=== PATIENT | male | born 1965 | race Caucasian/White ===

== ENCOUNTER 2016-07-29 13:41 | Emergency (ER) | payer SELFPAY ==
[~2016-07-29] VITALS: Ht 193 cm; Wt 100.0 kg
[2016-07-29 13:43] VITALS: BP 163/114; PULSE 86; RESP 16; TEMP 98.1; O2SAT 95
[2016-07-29 14:19] VITALS: BP 145/112
[2016-07-29] MEDS ORDERED: SODIUM CHLORIDE 0.9% FLUSH 5 ML FLUSH IVF PRN (14:30)
[2016-07-29 14:50] LABS: AUTOMATED NEUTROPHIL # 5.2 TH/MM3 (1.8-7.7); BASOPHIL # 0.1 TH/MM3 (0-0.2); BASOPHIL % 1.6 % (0.0-2.0); EOSINOPHIL # 0.1 TH/MM3 (0-0.4); EOSINOPHIL % 1.8 % (0.0-4.0); HEMATOCRIT 58.9 % (39.0-51.0); HEMO FLAGS DIFF FINAL; LYMPH % 22.6 % (9.0-44.0); LYMPHOCYTE # 1.8 TH/MM3 (1.0-4.8); MEAN CELL VOLUME 100.1 FL (80.0-100.0); MEAN CORPUSCULAR HEMOGLOBIN 34.3 PG (27.0-34.0); MEAN CORPUSCULAR HGB CONC 34.2 % (32.0-36.0); MONO % 9.7 % (0.0-8.0); NEUT % 64.3 % (16.0-70.0); PLATELET COUNT 160 TH/MM3 (150-450); RED BLOOD COUNT 5.89 MIL/MM3 (4.50-5.90); RED CELL DISTRIBUTION WIDTH 14.5 % (11.6-17.2); WHITE BLOOD COUNT 8.1 TH/MM3 (4.0-11.0)
[2016-07-29 14:58] LABS: BLOOD, URINE TRACE (NEG); GLUCOSE,URINE NEG (NEG); KETONE, URINE NEG (NEG); NITRITE,URINE NEG (NEG); PH, URINE 5.5 (5.0-8.5); URINE COLOR YELLOW (YELLW/STRAW)
[2016-07-29 14:59] LABS: PROTHROMBIN TIME - PATIENT 10.9 SEC (9.8-11.6)
[2016-07-29 14:59] LABS: COMMENT (UR) CULT NOT INDICATED; CULTURE IF INDICATED CULT NOT INDICATED
--- NOTE | 2016-07-29 15:00 | PD ---
HPI Chief Complaint: Back/ Neck Pain or Injury Time Seen by Provider: 14:57 Travel History International Travel<30 days: No Contact w/Intl Traveler<30days: No Traveled to known affect area: No History of Present Illness HPI 50-year-old male presents to the emergency room for evaluation of right flank pain after falling in the shower 2 nights ago. Patient slipped and fell backwards striking his right flank on the tile bench in his shower. He denies hitting his head or loss of consciousness. Denies any other injuries. Reports immediate pain that has worsened over the past 2 days. States pain is localized to the right flank and feels like a muscle spasm but occasionally radiates up his back. He has been taking Aleve without relief in symptoms. Pain is worse with any range of motion of the back. Denies hematuria. PFSH Social History Tobacco Use: No Allergies-Medications (Allergen,Severity, Reaction): Coded Allergies: No Known Allergies (Unverified , 07/29/16) Reported Meds & Prescriptions Reported Meds & Active Scripts Active Ibuprofen 800 Mg Tab 800 Mg PO Q8H PRN Robaxin (Methocarbamol) 750 Mg Tab 750 Mg PO Q6HR Review of Systems Except as stated in HPI: all other systems reviewed are Neg Physical Exam Narrative GENERAL: Well-nourished, well-developed male in no acute distress. Afebrile. Ambulatory. SKIN: Warm and dry. There is mild ecchymosis over the right flank. HEAD: Normocephalic. EYES: No scleral icterus. No injection or drainage. NECK: Supple, trachea midline. No JVD or lymphadenopathy. CARDIOVASCULAR: Regular rate and rhythm without murmurs, gallops, or rubs. RESPIRATORY: Breath sounds equal bilaterally. No accessory muscle use. CHEST: Extreme tenderness to palpation of the posterior right rib cage. No deformity or crepitance. No retractions or use of accessory muscles. GASTROINTESTINAL: Abdomen soft, non-tender, nondistended. BACK: No midline tenderness. No obvious deformity. Moderate to severe right- sided CVA tenderness. Data Data Last Documented VS Vital Signs Date Time Temp Pulse Resp B/P Pulse Ox O2 Delivery O2 Flow Rate FiO2 07/29/16 14:19 145/112 07/29/16 13:43 98.1 86 16 95 Room Air Orders Basic Metabolic Panel (Bmp) (07/29/16 14:27) Complete Blood Count With Diff (07/29/16 14:27) Prothrombin Time / Inr (Pt) (07/29/16 14:27) Act Partial Throm Time (Ptt) (07/29/16 14:27) Urinalysis - C+S If Indicated (07/29/16 14:27) Ct Abd/Pel W Iv Contrast(Rout) (07/29/16 14:27) Iv Access Insert/Monitor (07/29/16 14:27) Ecg Monitoring (07/29/16 14:27) Oximetry (07/29/16 14:27) Sodium Chloride 0.9% Flush (Ns Flush) (07/29/16 14:30) Iohexol 350 Inj (Omnipaque 350 Inj) (07/29/16 17:00) Acetamin-Hydrocod 325-5 Mg ([place] 5-325 (07/29/16 17:45) Cyclobenzaprine (Flexeril) (07/29/16 17:45) Labs Laboratory Tests Test 07/29/16 07/29/16 14:40 14:45 White Blood Count 8.1 TH/MM3 Red Blood Count 5.89 MIL/MM3 Hemoglobin 20.2 GM/DL Hematocrit 58.9 % Mean Corpuscular Volume 100.1 FL Mean Corpuscular Hemoglobin 34.3 PG Mean Corpuscular Hemoglobin 34.2 % Concent Red Cell Distribution Width 14.5 % Platelet Count 160 TH/MM3 Mean Platelet Volume 9.2 FL Neutrophils (%) (Auto) 64.3 % Lymphocytes (%) (Auto) 22.6 % Monocytes (%) (Auto) 9.7 % Eosinophils (%) (Auto) 1.8 % Basophils (%) (Auto) 1.6 % Neutrophils # (Auto) 5.2 TH/MM3 Lymphocytes # (Auto) 1.8 TH/MM3 Monocytes # (Auto) 0.8 TH/MM3 Eosinophils # (Auto) 0.1 TH/MM3 Basophils # (Auto) 0.1 TH/MM3 CBC Comment DIFF FINAL Differential Comment Prothrombin Time 10.9 SEC Prothromb Time International 1.0 RATIO Ratio Activated Partial 28.0 SEC Thromboplast Time Sodium Level 141 MEQ/L Potassium Level 4.7 MEQ/L Chloride Level 107 MEQ/L Carbon Dioxide Level 27.6 MEQ/L Anion Gap 6 MEQ/L Blood Urea Nitrogen 9 MG/DL Creatinine 0.98 MG/DL Estimat Glomerular Filtration 81 ML/MIN Rate Random Glucose 102 MG/DL Calcium Level 9.0 MG/DL Urine Color YELLOW Urine Turbidity CLEAR Urine pH 5.5 Urine Specific [place] 1.013 Urine Protein NEG mg/dL Urine Glucose (UA) NEG mg/dL Urine Ketones NEG mg/dL Urine Occult Blood TRACE Urine Nitrite NEG Urine Bilirubin NEG Urine Urobilinogen LESS THAN 2.0 MG/DL Urine Leukocyte Esterase NEG Urine RBC 1 /hpf Urine WBC LESS THAN 1 /hpf Microscopic Urinalysis Comment CULT NOT INDICATED MDM Medical Decision Making Medical Screen Exam Complete: Yes Emergency Medical Condition: Yes Medical Record Reviewed: Yes Differential Diagnosis rib fracture versus contusion versus kidney injury versus Narrative Course 50-year-old male presents to the emergency room for evaluation of right flank pain status post fall 2 days ago. Patient fell backwards in the shower striking his right flank on the tile shower seat. Since then he has had worsening pain. There is moderate ecchymosis over the right flank which is extremely tender to palpation. Posterior rib cage also extremely tender to palpation. Denies hematuria. Abdomen soft, nontender. Patient denies abdominal pain. UA shows trace occult blood. CBC and BMP are unremarkable. CT of the abdomen is negative for acute abnormality. This is contusion. Patient given Lortab and Flexeril in the emergency room. He will be discharged with prescription for ibuprofen and Robaxin and told to follow up with a primary care physician or return for worsening symptoms. He understands and agrees to this plan. Diagnosis Primary Impression: Contusion of left side of mid back Qualified Code: S20.222A - Contusion of left side of mid back, initial encounter Referrals: Primary Care Physician Patient Instructions: Contusion in Adults (ED), General Instructions Additional Instructions: Rest and drink plenty of fluids. Take Robaxin as directed, as needed for pain. Take ibuprofen with food as directed, as needed for pain. Apply ice to the affected area for 20 minutes at a time, as needed for pain and swelling. Follow-up with a primary care physician. Return to the emergency room for worsening symptoms. Med/Other Pt SpecificInfo: Prescription(s) given Scripts Ibuprofen 800 Mg [id number] Mg PO Q8H PRN (Pain/Inflammation) #21 TAB Ref 0 Prov:David Collins MD 07/29/16 Methocarbamol (Robaxin)750 Mg [id number] Mg PO Q6HR #21 TAB Ref 0 Prov:David Collins MD 07/29/16 Disposition: 01 DISCHARGE HOME Condition: Stable Aleyda Osborn Jul 29, 2016 15:00
[2016-07-29 15:19] LABS: BICARBONATE 27.6 MEQ/L (21.0-32.0); POTASSIUM 4.7 MEQ/L (3.5-5.1)
[2016-07-29] MEDS ORDERED: IOHEXOL 350 MG/ML 10 ML VIAL (for RAD DIAG) IV ONE (17:00)
--- NOTE | 2016-07-29 17:37 | RADRPT ---
EXAM DATE/TIME: 07/29/2016 16:58 [facility] COMPARISON: No previous studies available for comparison. INDICATIONS : Abdomen pain. IV CONTRAST: 77 cc Omnipaque 350 (iohexol) IV ORAL CONTRAST: No oral contrast ingested. RADIATION DOSE: 14.24 CTDIvol (mGy) MEDICAL HISTORY : None SURGICAL HISTORY : None. ENCOUNTER: Initial ACUITY: 1 day PAIN SCALE: 5/10 LOCATION: Bilateral abdomen. TECHNIQUE: Volumetric scanning of the abdomen and pelvis was performed. Using automated exposure control and ad justment of the mA and/or kV according to patient size, radiation dose was kept as low as reasonably achievable to obtain optimal diagnostic quality images. FINDINGS: LOWER LUNGS: Mild atelectasis at both lung bases noted. LIVER: Homogeneous density without lesion. There is no dilation of the biliary tree. No calcified [place]ston es. SPLEEN: Normal size without lesion. PANCREAS: Within normal limits. KIDNEYS: Normal in size and shape. There is no mass, stone or hydronephrosis. ADRENAL GLANDS: Within normal limits. VASCULAR: There is no aortic aneurysm. BOWEL/MESENTERY: The stomach, small bowel, and colon demonstrate no acute abnormality. There is no free intraperitone al air or fluid. ABDOMINAL WALL: Within normal limits. RETROPERITONEUM: There is no lymphadenopathy. BLADDER: No wall thickening or mass. REPRODUCTIVE: Within normal limits. INGUINAL: There is no lymphadenopathy or hernia. MUSCULOSKELETAL: Visualized osseous structures are intact. There are L5/S1 degenerative changes with vacuum phenomena and chronic endplate sclerosis. CONCLUSION: No visceral organ injury or other acute abnormality seen within the abdomen or pelvis. Mild atelectas is seen at both lung bases. Emiliano Lyon MD on July 29, 2016 at 17:32 Board Certified Radiologist. This report was verified electronically.
[2016-07-29] MEDS ORDERED: ROBA750T PO (17:44)
[2016-07-29] MEDS ORDERED: IBUP800T23 PO (17:44)
[2016-07-29] MEDS ORDERED: CYCLOBENZAPRINE HCL 10 MG TAB PO ONE (17:45)
[2016-07-29] MEDS ORDERED: ACETAMINOPHEN/HYDROcodone 325 MG/5 MG TAB PO ONE (17:45)
== END 2016-07-29 17:59 | disposition home or self-care (01) ==
LOC: NEPB 13:41
DX: S20.222A Contusion of left back wall of thorax, initial encounter (principal); W18.2XXA Fall in (into) shower or empty bathtub, initial encounter
CPT/HCPCS: 74177; 80048; 81001; 85025; 85610; 85730; 99284; Q9967

== ENCOUNTER 2016-08-03 04:27 | Emergency (ER) | payer SELFPAY ==
[~2016-08-03] VITALS: Ht 193 cm; Wt 100.0 kg
[~2016-08-03 04:27] MED LIST: IBUP800T23 PO; ROBA750T PO
[2016-08-03 04:31] VITALS: BP 168/114; PULSE 77; RESP 18; TEMP 97.6; O2SAT 97
[2016-08-03] MEDS ORDERED: MORPHINE SULFATE 8 MG/ML INJ IV PUSH ONE (04:45)
[2016-08-03] MEDS ORDERED: ONDANSETRON ODT 4 MG TAB PO ONE (04:45)
[2016-08-03] MEDS ORDERED: HYDR-3533 PO (04:46)
[2016-08-03] MEDS ORDERED: MORPHINE SULFATE 8 MG/ML INJ IM STA (04:52)
--- NOTE | 2016-08-03 04:52 | PD ---
HPI Chief Complaint: Pain: Acute or Chronic Time Seen by Provider: 04:46 Travel History International Travel<30 days: No Contact w/Intl Traveler<30days: No Traveled to known affect area: No History of Present Illness HPI 50-year-old white male presents to emergency Department with complaints of right lower back pain. He states that he was involved in a slip and fall earlier this past week. He had CAT scans of the abdomen and laboratory testing. These were negative. He was sent home with Motrin and Robaxin. He states that he was doing well and did some additional activities this evening and since then he has had sudden severe onset of right lower back pain. He denies any numbness, tingling or weakness. No bowel or bladder changes. PFSH Past Medical History Medical History: Denies Significant Hx Tetanus Vaccination: < 5 Years Past Surgical History Surgical History: No Previous Surgery Social History Tobacco Use: No Allergies-Medications (Allergen,Severity, Reaction): Coded Allergies: No Known Allergies (Unverified , 08/03/16) Reported Meds & Prescriptions Reported Meds & Active Scripts Active Ibuprofen 800 Mg Tab 800 Mg PO Q8H PRN Robaxin (Methocarbamol) 750 Mg Tab 750 Mg PO Q6HR Review of Systems Except as stated in HPI: all other systems reviewed are Neg Physical Exam Narrative GENERAL: Well-developed, well-nourished in no apparent distress. Nontoxic appearing. HEAD: Normocephalic, atraumatic. EYES: Pupils equal round and reactive. Extraocular motions intact. No scleral icterus. No injection or drainage. ENT: Nose clear. Throat without erythema, tonsillar hypertrophy or exudate. Uvula midline. Airway patent. NECK: Trachea midline. Supple, nontender, moves head freely. No central bony tenderness or spasm. CARDIOVASCULAR: Regular rate and rhythm without murmurs, gallops, or rubs. RESPIRATORY: Clear to auscultation. Breath sounds equal bilaterally. No wheezes , rales, or rhonchi. CHEST: Nontender throughout without deformity or crepitance. No retractions or use of accessory muscles. GASTROINTESTINAL: Abdomen soft, non-tender, nondistended. No hepato-splenomegaly , or palpable masses. No guarding. EXTREMITIES: No clubbing, cyanosis, or edema. No joint tenderness. BACK: No central bony tenderness to palpation of dorsal lumbar spine. Patient has an area of ecchymosis and stages of resolution to his right flank. The patient has acute tenderness and spasm to the right lower paralumbar muscles. Without deformity. NEUROLOGICAL: Awake, alert and oriented x 3 .Cranial nerves grossly intact. Motor and sensory grossly within normal limits. Normal speech. Data Data Last Documented VS Vital Signs Date Time Temp Pulse Resp B/P Pulse Ox O2 Delivery O2 Flow Rate FiO2 08/03/16 04:31 97.6 77 18 168/114 97 Room Air Orders Morphine Inj (Morphine Inj) (08/03/16 04:45) Ondansetron Odt (Zofran Odt) (08/03/16 04:45) MDM Medical Decision Making Medical Screen Exam Complete: Yes Emergency Medical Condition: Yes Medical Record Reviewed: Yes Differential Diagnosis MDM: High Differential diagnoses: Fracture, sprain, strain, dislocation, contusion, neurovascular injury Narrative Course This an acute exacerbation of a back injury. Patient's given morphine 8 mg IM and Zofran 4 mg by mouth. This acute exacerbation of back pain Diagnosis Primary Impression: acute exacerbation of back pain Patient Instructions: Narcotic given in the ED, General Instructions Additional Instructions: Rest. Ice for the next 3 days followed by heat . Continue your regular medications. Lortab for additional pain. Follow-up with a primary care doctor in one week. Return to the ER for emergencies. Med/Other Pt SpecificInfo: Prescription(s) given Scripts Hydrocodone-Acetaminophen (Lortab)5-325 Mg Tab1 Tab PO Q8HR PRN (PAIN) #12 TAB Prov:David Collins MD 08/03/16 Disposition: 01 DISCHARGE HOME Condition: Stable Gordon Gonzalez Aug 03, 2016 04:52
== END 2016-08-03 05:10 | disposition home or self-care (01) ==
LOC: NEPB 04:27
DX: M54.5 Low back pain (principal)
CPT/HCPCS: 96372; 99283; J2270

== ENCOUNTER 2018-04-21 09:31 | Inpatient (IN) ==
--- NOTE | 2018-04-21 10:37 | ED ---
HPI General Chief Complaint: Animal Bite Stated Complaint: Bite by snake right index finger on Saturday night at the side of the nail. Initially pain and redness. [facility] and was given Tetanus shot and monitored. Was told that he needed to be admitted but elected not to stay. Took a friend's Keflex for antibiotics. Since, the swelling and erythema has increased and spread down to MCP joint area. He has drained the finger with a hypodermic needle, serosanguinous fluid. Unable to bend the finger. Denies systemic symptoms other than mild headache. Time Seen by Provider: 04/21/18 10:33 Source: patient Mode of arrival: ambulatory Related Data Home Medications Medication Instructions Recorded Confirmed No Known Home Medications 04/21/18 04/21/18 Allergies Allergy/AdvReac Type Severity Reaction Status Date / Time No Known Allergies Allergy Uncoded 08/03/16 04:32 Review of Systems ROS: all other systems reviewed are negative Constitutional Denies fatigue, Denies fever(s) and Reports headache(s) Cardiovascular Denies chest pain and Denies syncope Respiratory Denies cough and Denies dyspnea Gastrointestinal Denies abdominal pain, Denies diarrhea, Denies nausea and Denies vomiting Musculoskeletal Comments: finger pain PMFSH Medical History Medical History High cholesterol (Acute) Social History Social History Substance History: No History of Abuse Second Hand Smoke Exposure: Yes Smoking Status: Current every day smoker Tobacco Type: Cigarettes How Often Do You Have a Drink Containing Alcohol: 2 to 4 times a month Recent Travel in [facility] within the Last 8 Weeks: No Recent Out of Country Travel within the Last 8 Weeks: No Immunization History Tetanus Immunization: <5 Years Hx Influenza Vaccine This Season: No Exam Narrative Exam Narrative: gENERAL: [52-year-old male in no apparent distress-] SKIN: Focused skin assessment warm/dry. HEAD: Atraumatic. Normocephalic. EYES: Pupils equal and round. No scleral icterus. No injection or drainage. ENT: No nasal bleeding or discharge. Mucous membranes pink and moist. NECK: Trachea midline. No JVD. CARDIOVASCULAR: Regular rate and rhythm. No murmur appreciated. RESPIRATORY: No accessory muscle use. Clear to auscultation. Breath sounds equal bilaterally. GASTROINTESTINAL: Abdomen soft, non-tender, nondistended. Hepatic and splenic margins not palpable. MUSCULOSKELETAL: No obvious deformities. Pt has left distal finger swelling with hematoma under skin, erythema in hand up to a wrist, streaking. NEUROLOGICAL: Awake and alert. No obvious cranial nerve deficits. Motor grossly within normal limits. Normal speech. PSYCHIATRIC: Appropriate mood and affect; insight and judgment normal. Resp Effort & Inspection: normal respiratory effort Auscultation: clear to auscultation bilaterally Cardio Rate: regular rate Rhythm: regular rhythm Heart Sounds: S1 normal, S2 normal and no murmurs Course Initial Documented Vital Signs Temperature 97.5 F L 04/21/18 09:46 Pulse Rate 93 H 04/21/18 09:46 Respiratory Rate 15 04/21/18 09:46 Blood Pressure 161/102 H 04/21/18 09:46 Pulse Oximetry 96 04/21/18 09:46 Last Documented Vital Signs Temperature 98.0 F 04/21/18 09:52 Pulse Rate 79 04/21/18 14:21 Respiratory Rate 18 04/21/18 14:21 Blood Pressure 151/102 H 04/21/18 14:21 Pulse Oximetry 98 04/21/18 14:21 Medical Decision Making MDM Narrative Medical decision making narrative: Patient had a rattlesnake bite on Saturday, was discharged from [facility], failed Keflex antibiotics. She has worsening finger and hand cellulitis, will need to be admitted for IV antibiotics. Case discussed with team, Pt is accepted for admission, Hand surgeon call back is pending. Case discussed with , who agreed to be on case, will see Pt tomorrow. Medical Screen Exam Complete: Yes Emergency Medical Condition: No Differential Diagnosis Differential Diagnosis: Snakebite Hand cellulitis Lab Data Result diagrams: 04/21/18 10:54 04/21/18 13:16 Lab Results 04/21/18 04/21/18 Range/Units 10:54 13:16 WBC 6.2 (4.0-11.0) th/mm3 RBC 5.40 (4.50-5.90) mil/mm3 Hgb 19.9 H (13.0-17.0) gm/dL Hct 57.5 H (39.0-51.0) % MCV 106.5 H (80.0-100.0) fL MCH 36.9 H (27.0-34.0) pg MCHC 34.6 (32.0-36.0) % RDW 15.7 (11.6-17.2) % Plt Count 163 (150-450) th/mm3 MPV 9.2 (7.0-11.0) fL Neut % (Auto) 60.9 (16.0-70.0) % Lymph % (Auto) 23.4 (9.0-44.0) % [place] % (Auto) 8.8 H (0.0-8.0) % Eos % (Auto) 6.0 H (0.0-4.0) % Baso % (Auto) 0.9 (0.0-2.0) % Neut # (Auto) 3.8 (1.8-7.7) th/mm3 Lymph # (Auto) 1.5 (1.0-4.8) th/mm3 [place] # (Auto) 0.5 (0.0-0.9) th/mm3 Eos # (Auto) 0.4 (0.0-0.4) th/mm3 Baso # (Auto) 0.1 (0.0-0.2) th/mm3 WBC Differential . Differential Comment Auto diff final Sodium 140 (136-145) meq/L Potassium 4.3 (3.5-5.1) meq/L Chloride 112 H (98-107) meq/L Carbon Dioxide 20.7 L (21.0-32.0) meq/L Anion Gap 7 (5-15) meq/L BUN 8 (7-18) mg/dL Creatinine 0.81 (0.60-1.30) mg/dL Estimated GFR Greater than 89 (>89) mL/min Random Glucose 92 (74-106) mg/dL Calcium 8.0 L (8.5-10.1) mg/dL Total Bilirubin 1.2 H (0.2-1.0) mg/dL AST 13 L (15-37) U/L ALT 22 (12-78) U/L Alkaline Phosphatase 82 (45-117) U/L Total Protein 6.3 L (6.4-8.2) g/dL Albumin 3.1 L (3.4-5.0) g/dL Discharge Plan Discharge Disposition Patient Disposition: 01 Discharge Home Discharge Order Discharge Orders: Discharge Order (Routine); Ordered 04/21/18 Ordered By: Cisco Kruse Discharge Details Diagnosis: Cellulitis and abscess of hand, Bite, snake, venomous Physicians Team ED Provider: Cisco Kruse Primary Care Provider: Samir Cox Rxs /Orders / Referrals /Forms Prescriptions: No Action No Known Home Medications RF: 0 Discharge Interventions Interventions: Vital Signs Last Done: 04/21/18 14:21 Status ED Status: Admitted Patient
[2018-04-21] MEDS ORDERED: Sod Chloride 0.9% Inj 1,000 ML IV.SIG ONE (10:43)
[2018-04-21] MEDS ORDERED: Ketorolac Inj 30 MG/ML (IVP) Vial IV.PUSH ONE (10:43)
[2018-04-21] MEDS ORDERED: Clindamycin 600 mg/NS Premix 600 MG/50 ML PIGGYBACK IV.SIG ONE (10:43)
[2018-04-21 11:26] LABS: Baso # (Auto) 0.1 th/mm3 (0.0-0.2); Baso % (Auto) 0.9 % (0.0-2.0); Eos # (Auto) 0.4 th/mm3 (0.0-0.4); Hematocrit 57.5 % (39.0-51.0); Hemoglobin 19.9 gm/dL (13.0-17.0); Lymph # (Auto) 1.5 th/mm3 (1.0-4.8); Lymph % (Auto) 23.4 % (9.0-44.0); Mean Corpuscular HGB Conc 34.6 % (32.0-36.0); Mean Corpuscular Hemoglobin 36.9 pg (27.0-34.0); Mean Corpuscular Volume 106.5 fL (80.0-100.0); Mean Platelet Volume 9.2 fL (7.0-11.0); Mono # (Auto) 0.5 th/mm3 (0.0-0.9); Mono % (Auto) 8.8 % (0.0-8.0); Neut # (Auto) 3.8 th/mm3 (1.8-7.7); Neut % (Auto) 60.9 % (16.0-70.0); Platelet Count 163 th/mm3 (150-450); Red Cell Distribution Width 15.7 % (11.6-17.2); White Blood Count 6.2 th/mm3 (4.0-11.0)
[2018-04-21 13:46] LABS: Albumin 3.1 g/dL (3.4-5.0); Anion Gap 7 meq/L (5-15); Aspartate Aminotransferase 13 U/L (15-37); Blood Urea Nitrogen 8 mg/dL (7-18); Carbon Dioxide 20.7 meq/L (21.0-32.0); Chloride 112 meq/L (98-107); Glomerular Filtration Rate Greater Than 89 mL/min (>89); Glucose,Random 92 mg/dL (74-106); Potassium 4.3 meq/L (3.5-5.1); Sodium 140 meq/L (136-145)
[2018-04-21 13:49] LABS: Alanine Aminotransferase 22 U/L (12-78); Alkaline Phosphatase 82 U/L (45-117); Total Protein 6.3 g/dL (6.4-8.2)
[2018-04-21] MEDS ORDERED: Ibuprofen 400 MG Tablet PO PRN (15:07)
[2018-04-21] MEDS ORDERED: Naloxone Inj 0.4 MG/ML Vial IV.PUSH PRN (15:07)
--- NOTE | 2018-04-21 15:17 | P.PNFP ---
Subjective Interval history: This is a 52-year-old male seen with his in [facility]. He was camping in a tent in [place] and on April 18, he was bit on the lateral aspect of his right index finger adjacent to the nail by a pygmy rattler. He went to a hospital there, imaging was done to determine if there was any part of the fang remaining, and he was not given antibiotics. He has been taking Keflex 250 mg that he obtained from a friend and has had 4 doses. He shows us pictures of significant swelling of his finger and the evolution of the bulla on the distal finger. He has been draining this bulla with a sterile needle but the bulla refills rather rapidly. He has significant pain in this finger and is unable to bend either the DIP or the PIP joint. There is swelling , and purple blue discoloration of the lateral aspect of the distal index finger. The bulla was demarcated with a marker, as well as the erythema. Please see history and physical examination for this admission for additional historical details. Patient is a heavy smoker, is currently using snuff but would use a nicotine patch. 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 Results - Labs Result diagrams: 04/22/18 05:58 04/22/18 05:58 Abnormal lab results 04/21/18 04/21/18 Range/Units 10:54 13:16 Hgb 19.9 H (13.0-17.0) gm/dL Hct 57.5 H (39.0-51.0) % MCV 106.5 H (80.0-100.0) fL MCH 36.9 H (27.0-34.0) pg [place] % (Auto) 8.8 H (0.0-8.0) % Eos % (Auto) 6.0 H (0.0-4.0) % Chloride 112 H (98-107) meq/L Carbon Dioxide 20.7 L (21.0-32.0) meq/L Calcium 8.0 L (8.5-10.1) mg/dL Total Bilirubin 1.2 H (0.2-1.0) mg/dL AST 13 L (15-37) U/L Total Protein 6.3 L (6.4-8.2) g/dL Albumin 3.1 L (3.4-5.0) g/dL Short CBC 04/21/18 Range/Units 10:54 WBC 6.2 (4.0-11.0) th/mm3 Hgb 19.9 H (13.0-17.0) gm/dL Hct 57.5 H (39.0-51.0) % Plt Count 163 (150-450) th/mm3 BMP 04/21/18 13:16 Sodium 140 Potassium 4.3 Chloride 112 H Carbon Dioxide 20.7 L BUN 8 Creatinine 0.81 Calcium 8.0 L Liver Function 04/21/18 Range/Units 13:16 Total Bilirubin 1.2 H (0.2-1.0) mg/dL AST 13 L (15-37) U/L ALT 22 (12-78) U/L Alkaline Phosphatase 82 (45-117) U/L Albumin 3.1 L (3.4-5.0) g/dL Physical Exam Vital signs: Vital Signs 04/21/18 09:46 04/21/18 09:52 04/21/18 14:21 Temperature 97.5 F L 98.0 F Pulse Rate 93 H 68 79 Respiratory Rate 15 18 Blood Pressure 161/102 H 158/107 H 151/102 H Pulse Oximetry 96 97 98 04/21/18 15:07 Temperature Pulse Rate Respiratory Rate Blood Pressure Pulse Oximetry 98 Intake & Output 04/20/18 04/21/18 04/21/18 18:59 06:59 18:59 Intake Total 1050 / 1050 Balance 1050 / 1050 Weight 92.986 kg Intake: IV 1050 / 1050 Cleocin 600 mg/NS Premix 600 mg 50 / 50 In 50 ml @ 100 mls/hr IV.SIG ONCE ONE Rx#:[id number] NS Inj 1,000 ML @ Wide Open IV. 1000 / 1000 SIG BOLUS ONE Rx#:[id number] - Additional findings Additional findings: GENERAL: Well-nourished, well-developed patient. Pleasant. No acute distress. SKIN: Warm and dry. No rashes present. HEAD: Normocephalic, atraumatic. EYES: No scleral icterus. No injection or drainage. Extraocular movements intact. Conjunctivae pink. CARDIAC: Normal rate and regular rhythm, normal S1/S2, no murmur, rub or gallop. RESPIRATORY: CTAB, no crackles or wheezes. No accessory muscle use. GASTROINTESTINAL: Abdomen nondistended. Active bowel sounds MUSCULOSKELETAL: No cyanosis or edema. See below under extremities EXTREMITIES: There is swelling and erythema of the distal third of the right index finger with a large bulla which measures 4 x 3.5 cm. There are fang wei just lateral to the nail. The bulla was cleansed with alcohol and opened with a #11 blade and culture was obtained of the fluid contents which appeared to be serosanguineous. No pus was extruded. Patient tolerated the procedure well and the nurse was requested to place a dressing. He is unable to bend the distal or proximal IP joints of this finger. No epitrochlear node was palpated. NEURO: Cranial nerves II through XII grossly intact. No obvious focal neurologic deficits. Moves all extremities well. Normal gait. PSYCH: Normal mood and affect. Good eye contact. Good insight and judgment. Normal speech. Assessment and Plan - Assessment (1) Bite, snake, venomous Code(s): T63.004A - Toxic effect of unspecified snake venom, undetermined, initial encounter Status: Acute - Assessment and Plan Continue antibiotics. Discussed Condition With: Dr. Fulton and Dr. Malin. Discharge Planning: Anticipate discharge after being seen by hand surgeon tomorrow. - Attending Attestation Patient was seen, examined and discussed with the medicine team.
--- NOTE | 2018-04-21 15:29 | P.HPFP ---
History of Present Illness Primary Care Physician: Samir Cox Chief Complaint: Swelling in finger after animal bite History of Present Illness: Patient is a 52-year-old male with no significant past medical history who presents with pain and swelling in the right second digit. On Saturday (3 days [employer]) he was bit by a pygmy rattlesnake in the area of the right second distal phalanx while camping. He had immediate pain and swelling to the area. He went to an outside hospital where he received a digital nerve block and a tetanus booster. They wanted to observe him overnight and he declined admission. He states that they did not want to give him any antibiotics or other treatment at that time. Since that time he has had continued swelling and pain. He punctured the area with a new, clean needle because he felt like it was increasing in pressure, and he had significant drainage after that. He took 4 doses of Keflex 250 mg that he acquired from a friend. He describes his current pain as 8/10, constant, burning and throbbing , and feels like he has significant pressure. He has some subjective numbness to the finger. In the ED he received 1 dose of IV clindamycin. Denies changes in vision, changes in hearing, chest pain, palpitations, shortness of breath, nausea, vomiting, change in bowel habits, dysuria. - Diagnosis (1) Cellulitis and abscess of hand (2) Bite, snake, venomous Review of Systems Patient denies chest pain, palpitations, shortness of breath, fever, chills, vomiting, change in bowel habits. All other systems reviewed negative except as stated in HPI PMFSH - History History Provided By: Patient - Medical / Surgical Hx Neg / Unobtainable Medical Problems Denied: Yes - Medical History Medical History: Medical History (Last Updated 04/21/18 @ 09:59 by Emiliano Stratton) High cholesterol - Surgical History Surgical History: Surgical History (Last Updated 04/21/18 @ 15:11 by Doc Malin MD, R1) H/O arthroscopic knee surgery H/O sinus surgery - Family History Family History: Family History (Last Updated 04/21/18 @ 15:12 by Doc Malin MD, R1) Sister Cancer of pancreas Sister Esophageal cancer Mother Breast cancer - Social History I have reviewed the patient's Social History: Yes - Tobacco History Second Hand Smoke Exposure: Yes Tobacco Use In Past 30 Days: Yes Smoking Status: Current every day smoker Tobacco Type: Cigarettes Packs Per Day: 1 Years Smoked: 31 - Alcohol History How Often Do You Have a Drink Containing Alcohol: 2 to 4 times a month - Substance Use History Substance History: No History of Abuse - Travel History Recent Travel in the [place] Within the Last 8 Weeks: No Recent Travel Out of the Country Within the Last 8 Weeks: No - Immunization History Tetanus Immunization: <5 Years Hx Influenza Vaccine This Season: No Medications and Allergies Allergies Allergy/AdvReac Type Severity Reaction Status Date / Time No Known Allergies Allergy Uncoded 08/03/16 04:32 Home Medications Medication Instructions Recorded Confirmed Type No Known Home Medications 04/21/18 04/21/18 History Exam Vital signs: Vital Signs 04/21/18 09:46 04/21/18 09:52 04/21/18 14:21 Temperature 97.5 F L 98.0 F Pulse Rate 93 H 68 79 Respiratory Rate 15 18 18 Blood Pressure 161/102 H 158/107 H 151/102 H Pulse Oximetry 96 97 98 Intake & Output 04/20/18 04/21/18 04/21/18 18:59 06:59 18:59 Intake Total 1050 / 1050 Balance 1050 / 1050 Weight 92.986 kg Intake: IV 1050 / 1050 Cleocin 600 mg/NS Premix 600 mg 50 / 50 In 50 ml @ 100 mls/hr IV.SIG ONCE ONE Rx#:[id number] NS Inj 1,000 ML @ Wide Open IV. 1000 / 1000 SIG BOLUS ONE Rx#:[id number] Narrative: General: Well-developed, alert, and in no acute distress. Appears stated age HEENT: Atraumatic, EOMI, non-icteric sclera and no conjunctival injection, moist mucous membranes Neck: Supple, non-tender without masses or lymphadenopathy, trachea midline Cardiac: Regular rate and rhythm without murmurs Pulmonary: Non-labored breathing. Lungs clear to auscultation bilaterally with good air movement Abdomen: Normal bowel sounds, soft and non-tender without rebound or guarding Extremities: No edema, 2+ pedal pulses, capillary refill less than 2 seconds Right second digit: Bullous collection at the distil and dorsal aspect of 4cm x 3.5cm with about 1cm of erythema extending proximally. There is significant edema and ROM restriction at the DIP joint, and some edema and ROM restriction at the PIP joint. Diffuse tenderness in the area. Results - Labs Result diagrams: 04/21/18 10:54 04/21/18 13:16 Abnormal lab results 04/21/18 04/21/18 Range/Units 10:54 13:16 Hgb 19.9 H (13.0-17.0) gm/dL Hct 57.5 H (39.0-51.0) % MCV 106.5 H (80.0-100.0) fL MCH 36.9 H (27.0-34.0) pg [place]eadle % (Auto) 8.8 H (0.0-8.0) % Eos % (Auto) 6.0 H (0.0-4.0) % Chloride 112 H (98-107) meq/L Carbon Dioxide 20.7 L (21.0-32.0) meq/L Calcium 8.0 L (8.5-10.1) mg/dL Total Bilirubin 1.2 H (0.2-1.0) mg/dL AST 13 L (15-37) U/L Total Protein 6.3 L (6.4-8.2) g/dL Albumin 3.1 L (3.4-5.0) g/dL Short CBC 04/21/18 Range/Units 10:54 WBC 6.2 (4.0-11.0) th/mm3 Hgb 19.9 H (13.0-17.0) gm/dL Hct 57.5 H (39.0-51.0) % Plt Count 163 (150-450) th/mm3 BMP 04/21/18 13:16 Sodium 140 Potassium 4.3 Chloride 112 H Carbon Dioxide 20.7 L BUN 8 Creatinine 0.81 Calcium 8.0 L Liver Function 04/21/18 Range/Units 13:16 Total Bilirubin 1.2 H (0.2-1.0) mg/dL AST 13 L (15-37) U/L ALT 22 (12-78) U/L Alkaline Phosphatase 82 (45-117) U/L Albumin 3.1 L (3.4-5.0) g/dL Caprini VTE Risk Assessment Caprini VTE Risk Assessment: No/Low Risk (score <= 1) Caprini Risk Assessment Model: Point Value = 1 Point Value = 2 Point Value = 3 Point Value = 5 Age 41-60 Minor surgery BMI > 25 kg/m2 Swollen legs Varicose veins or History of unexplained or recurrent spontaneous Oral contraceptives or hormone replacement Sepsis (< 1 month) Serious lung disease, including pneumonia (< 1 month) Abnormal pulmonary function Acute myocardial infarction Congestive heart failure (< 1 month) History of inflammatory bowel disease Medical patient at bed rest Age 61-74 Arthroscopic surgery Major open surgery (> 45 min) Laparoscopic surgery (> 45 min) Malignancy Confined to bed (> 72 hours) Immobilizing plaster cast Central venous access Age >= 75 History of VTE Family history of VTE Factor V Leiden Prothrombin [id number] Lupus anticoagulant Anticardiolipin antibodies Elevated serum homocysteine Heparin-induced thrombocytopenia Other congenital or acquired thrombophilia Stroke (< 1 month) Elective arthroplasty Hip, pelvis, or leg fracture Acute spinal cord injury (< 1 month) Prophylaxis Regimen: Total Risk Factor Score Risk Level Prophylaxis Regimen 0-1 Low Early ambulation 2 Moderate Order ONE of the following: *Sequential Compression Device (SCD) *Heparin 5000 units SQ BID 3-4 Higher Order ONE of the following medications: *Heparin 5000 units SQ TID *Enoxaparin/Lovenox 40 mg SQ daily (WT < 150 kg, CrCl > 30 mL/min) *Enoxaparin/Lovenox 30 mg SQ daily (WT < 150 kg, CrCl > 10-29 mL/min) *Enoxaparin/Lovenox 30 mg SQ BID (WT < 150 kg, CrCl > 30 mL/min) AND/OR *Sequential Compression Device (SCD) 5 or more Highest Order ONE of the following medications: *Heparin 5000 units SQ TID (Preferred with Epidurals) *Enoxaparin/Lovenox 40 mg SQ daily (WT < 150 kg, CrCl > 30 mL/min) *Enoxaparin/Lovenox 30 mg SQ daily (WT < 150 kg, CrCl > 10-29 mL/min) *Enoxaparin/Lovenox 30 mg SQ BID (WT < 150 kg, CrCl > 30 mL/min) AND *Sequential Compression Device (SCD) Assessment and Plan - Assessment (1) Cellulitis and abscess of hand Code(s): L03.119 - Cellulitis of unspecified part of limb; L02.519 - Cutaneous abscess of unspecified hand Status: Acute (2) Bite, snake, venomous Code(s): T63.004A - Toxic effect of unspecified snake venom, undetermined, initial encounter Status: Acute - Assessment and Plan Patient is a 52-year-old male with no significant past medical history admitted with cellulitis/edema of the right second digit. -Clindamycin 600 mg every 8 hours -I&D performed at bedside with serosanguineous drainage, wound culture obtained -Hand surgery consulted (Dr. Driscoll), who plans on seeing him in the morning -Blood cultures 2 drawn in the ED and pending -Gatzke as needed for pain -Nicotine patch Fluids: IV to Hep-Lock Electrolytes: monitor and replete as needed Nutrition: Regular diet, n.p.o. after midnight for potential surgical intervention GI prophylaxis: Not indicated VTE prophylaxis: Not indicated, early ambulation
[2018-04-21] MEDS: Clindamycin 600 mg/NS Premix 600 MG/50 ML PIGGYBACK IV.SIG SCH (20:57)
[2018-04-21] MEDS: Senna/Docusate Sodium 8.6/50 MG Tablet PO SCH (21:02)
[2018-04-22] MEDS: Clindamycin 600 mg/NS Premix 600 MG/50 ML PIGGYBACK IV.SIG SCH ×2 (05:08→12:22)
[2018-04-22 07:36] LABS: Baso # (Auto) 0.1 th/mm3 (0.0-0.2); Baso % (Auto) 1.2 % (0.0-2.0); Eos # (Auto) 0.5 th/mm3 (0.0-0.4); Eos % (Auto) 8.1 % (0.0-4.0); Hematocrit 51.8 % (39.0-51.0); Lymph % (Auto) 15.1 % (9.0-44.0); Mean Corpuscular HGB Conc 34.7 % (32.0-36.0); Mean Corpuscular Hemoglobin 36.6 pg (27.0-34.0); Mean Corpuscular Volume 105.6 fL (80.0-100.0); Mean Platelet Volume 9.2 fL (7.0-11.0); Mono # (Auto) 0.6 th/mm3 (0.0-0.9); Mono % (Auto) 9.1 % (0.0-8.0); Neut # (Auto) 4.4 th/mm3 (1.8-7.7); Neut % (Auto) 66.5 % (16.0-70.0); Platelet Count 141 th/mm3 (150-450); Red Blood Count 4.91 mil/mm3 (4.50-5.90); Red Cell Distribution Width 15.3 % (11.6-17.2); White Blood Count 6.6 th/mm3 (4.0-11.0)
[2018-04-22 07:53] VITALS: RESP 16
[2018-04-22 07:58] LABS: Anion Gap 10 meq/L (5-15); Blood Urea Nitrogen 8 mg/dL (7-18); Carbon Dioxide 23.8 meq/L (21.0-32.0); Chloride 107 meq/L (98-107); Glomerular Filtration Rate Greater Than 89 mL/min (>89); Glucose,Random 84 mg/dL (74-106); Sodium 141 meq/L (136-145)
[2018-04-22] MEDS ORDERED: oxyCODONE/Acetaminophen 10/325 Tablet PO ONE (09:00)
[2018-04-22] MEDS ORDERED: Lisinopril 10 MG Tablet PO SCH (09:00)
[2018-04-22] MEDS: Senna/Docusate Sodium 8.6/50 MG Tablet PO SCH (09:12)
--- NOTE | 2018-04-22 11:08 | P.PNFP ---
Subjective Interval history: No acute events overnight. Patient does complain that he has some throbbing pain in his finger extending down to his PIP joint. Otherwise, patient has no other complaints. Denies fevers, chest pain, shortness of breath, nausea vomiting. Patient's blood pressure noted to be elevated during hospital stay. Patient states that he does have chronic hypertension untreated. Will start patient on antihypertensive this morning. Patient is agreeable. <Annie Fulton - 04/22/18 12:11> Results - Labs Result diagrams: 04/22/18 05:58 04/22/18 05:58 <Yesika Bee - 04/22/18 12:53> Abnormal lab results 04/21/18 04/22/18 04/22/18 Range/Units 13:16 05:58 05:58 Hgb 18.0 H (13.0-17.0) gm/dL Hct 51.8 H (39.0-51.0) % MCV 105.6 H (80.0-100.0) fL MCH 36.6 H (27.0-34.0) pg Plt Count 141 L (150-450) th/mm3 [place] % (Auto) 9.1 H (0.0-8.0) % Eos % (Auto) 8.1 H (0.0-4.0) % Eos # (Auto) 0.5 H (0.0-0.4) th/mm3 Chloride 112 H (98-107) meq/L Carbon Dioxide 20.7 L (21.0-32.0) meq/L Calcium 8.0 L 8.0 L (8.5-10.1) mg/dL Total Bilirubin 1.2 H (0.2-1.0) mg/dL AST 13 L (15-37) U/L Total Protein 6.3 L (6.4-8.2) g/dL Albumin 3.1 L (3.4-5.0) g/dL Short CBC 04/22/18 Range/Units 05:58 WBC 6.6 (4.0-11.0) th/mm3 Hgb 18.0 H (13.0-17.0) gm/dL Hct 51.8 H (39.0-51.0) % Plt Count 141 L (150-450) th/mm3 BMP 04/21/18 04/22/18 13:16 05:58 Sodium 140 141 Potassium 4.3 4.0 Chloride 112 H 107 Carbon Dioxide 20.7 L 23.8 BUN 8 8 Creatinine 0.81 0.82 Calcium 8.0 L 8.0 L Liver Function 04/21/18 Range/Units 13:16 Total Bilirubin 1.2 H (0.2-1.0) mg/dL AST 13 L (15-37) U/L ALT 22 (12-78) U/L Alkaline Phosphatase 82 (45-117) U/L Albumin 3.1 L (3.4-5.0) g/dL <Rohit,Yesika - 04/22/18 12:53> Abnormal lab results 04/21/18 04/21/18 04/22/18 Range/Units 10:54 13:16 05:58 Hgb 19.9 H 18.0 H (13.0-17.0) gm/dL Hct 57.5 H 51.8 H (39.0-51.0) % MCV 106.5 H 105.6 H (80.0-100.0) fL MCH 36.9 H 36.6 H (27.0-34.0) pg Plt Count 141 L (150-450) th/mm3 [place] % (Auto) 8.8 H 9.1 H (0.0-8.0) % Eos % (Auto) 6.0 H 8.1 H (0.0-4.0) % Eos # (Auto) 0.5 H (0.0-0.4) th/mm3 Chloride 112 H (98-107) meq/L Carbon Dioxide 20.7 L (21.0-32.0) meq/L Calcium 8.0 L (8.5-10.1) mg/dL Total Bilirubin 1.2 H (0.2-1.0) mg/dL AST 13 L (15-37) U/L Total Protein 6.3 L (6.4-8.2) g/dL Albumin 3.1 L (3.4-5.0) g/dL 04/22/18 Range/Units 05:58 Hgb (13.0-17.0) gm/dL Hct (39.0-51.0) % MCV (80.0-100.0) fL MCH (27.0-34.0) pg Plt Count (150-450) th/mm3 [place] % (Auto) (0.0-8.0) % Eos % (Auto) (0.0-4.0) % Eos # (Auto) (0.0-0.4) th/mm3 Chloride (98-107) meq/L Carbon Dioxide (21.0-32.0) meq/L Calcium 8.0 L (8.5-10.1) mg/dL Total Bilirubin (0.2-1.0) mg/dL AST (15-37) U/L Total Protein (6.4-8.2) g/dL Albumin (3.4-5.0) g/dL Short CBC 04/21/18 04/22/18 Range/Units 10:54 05:58 WBC 6.2 6.6 (4.0-11.0) th/mm3 Hgb 19.9 H 18.0 H (13.0-17.0) gm/dL Hct 57.5 H 51.8 H (39.0-51.0) % Plt Count 163 141 L (150-450) th/mm3 BMP 04/21/18 04/22/18 13:16 05:58 Sodium 140 141 Potassium 4.3 4.0 Chloride 112 H 107 Carbon Dioxide 20.7 L 23.8 BUN 8 8 Creatinine 0.81 0.82 Calcium 8.0 L 8.0 L Liver Function 04/21/18 Range/Units 13:16 Total Bilirubin 1.2 H (0.2-1.0) mg/dL AST 13 L (15-37) U/L ALT 22 (12-78) U/L Alkaline Phosphatase 82 (45-117) U/L Albumin 3.1 L (3.4-5.0) g/dL <Annie Fulton T - 04/22/18 11:08> Physical Exam Vital signs: Vital Signs 04/21/18 14:21 04/21/18 15:07 04/21/18 16:00 Temperature 97.6 F Pulse Rate 79 54 L Respiratory Rate 18 19 Blood Pressure 151/102 H 160/93 H Pulse Oximetry 98 98 99 04/21/18 16:40 04/21/18 17:20 04/21/18 20:00 Temperature 98.4 F Pulse Rate 59 L Respiratory Rate 16 18 17 Blood Pressure 157/94 H Pulse Oximetry 98 04/22/18 00:00 04/22/18 01:48 04/22/18 02:23 Temperature 98 F Pulse Rate 64 Respiratory Rate 17 18 Blood Pressure 150/92 H Pulse Oximetry 96 96 04/22/18 07:52 Temperature 97.7 F Pulse Rate 53 L Respiratory Rate 16 Blood Pressure 141/93 H Pulse Oximetry 97 Intake & Output 04/21/18 04/22/18 04/22/18 18:59 06:59 18:59 Intake Total 1050 / 1050 580 / 580 Balance 1050 / 1050 580 / 580 Weight 92.986 kg 92.9 kg Intake: IV 1050 / 1050 100 / 100 Cleocin 600 mg/NS Premix 600 mg 50 / 50 100 / 100 In 50 ml @ 100 mls/hr IV.SIG Q8H LAZARO Rx#:[id number] NS Inj 1,000 ML @ Wide Open IV. 1000 / 1000 SIG BOLUS ONE Rx#:[id number] Oral 480 / 480 Other: # Voids 3 <Yesika Bee - 04/22/18 12:53> Vital Signs 04/21/18 14:21 04/21/18 15:07 04/21/18 16:00 Temperature 97.6 F Pulse Rate 79 54 L Respiratory Rate 18 19 Blood Pressure 151/102 H 160/93 H Pulse Oximetry 98 98 99 04/21/18 16:40 04/21/18 17:20 04/21/18 20:00 Temperature 98.4 F Pulse Rate 59 L Respiratory Rate 16 18 17 Blood Pressure 157/94 H Pulse Oximetry 98 04/22/18 00:00 04/22/18 01:48 04/22/18 02:23 Temperature 98 F Pulse Rate 64 Respiratory Rate 17 18 Blood Pressure 150/92 H Pulse Oximetry 96 96 04/22/18 07:52 Temperature 97.7 F Pulse Rate 53 L Respiratory Rate 16 Blood Pressure 141/93 H Pulse Oximetry 97 Intake & Output 04/21/18 04/22/18 04/22/18 18:59 06:59 18:59 Intake Total 1050 / 1050 580 / 580 Balance 1050 / 1050 580 / 580 Weight 92.986 kg 92.9 kg Intake: IV 1050 / 1050 100 / 100 Cleocin 600 mg/NS Premix 600 mg 50 / 50 100 / 100 In 50 ml @ 100 mls/hr IV.SIG Q8H LAZARO Rx#:[id number] NS Inj 1,000 ML @ Wide Open IV. 1000 / 1000 SIG BOLUS ONE Rx#:[id number] Oral 480 / 480 Other: # Voids 3 <Annie Fulton - 04/22/18 11:08> Narrative: General: Well-developed, alert, and in no acute distress. Appears stated age Cardiac: Regular rate and rhythm without murmurs Pulmonary: Non-labored breathing. Lungs clear to auscultation bilaterally with good air movement Abdomen: Normal bowel sounds, soft and non-tender without rebound or guarding Extremities: No edema, 2+ pedal pulses, capillary refill less than 2 seconds Right second digit: Wrapped in bandage <Annie Fulton - 04/22/18 12:11> Assessment and Plan - Assessment (1) Bite, snake, venomous Code(s): T63.004A - Toxic effect of unspecified snake venom, undetermined, initial encounter Status: Acute (2) Hypertension Code(s): I10 - Essential (primary) hypertension Status: Acute <Yesika Bee - 04/22/18 12:53> (1) Bite, snake, venomous Code(s): T63.004A - Toxic effect of unspecified snake venom, undetermined, initial encounter Status: Acute (2) Hypertension Code(s): I10 - Essential (primary) hypertension Status: Acute <Annie Fulton - 04/22/18 12:05> - Assessment and Plan Patient is a 52-year-old male with no significant past medical history admitted with cellulitis/edema of the right second digit. 1. Cellulitis of right second digit -Clindamycin 600 mg every 8 hours -I&D performed at bedside 04/22 with serosanguineous drainage, wound culture- luminary shows no growth in 24 hours -Hand surgery consulted (Dr. Driscoll), who plans on seeing him in the morning -Blood cultures 2 drawn in the ED-no growth in 1 day -Percocet as needed for pain -Nicotine patch 2. Hypertension -Blood pressure ranging 150-160s/90s-95s -Start lisinopril 10 mg daily Fluids: IV to Hep-Lock Electrolytes: monitor and replete as needed Nutrition: N.p.o., will transition to regular diet once hand surgery sees patient GI prophylaxis: Not indicated VTE prophylaxis: Not indicated, early ambulation <Annie Fulton - 04/22/18 12:11> - Attending Attestation Patient was seen, examined and discussed with the medicine B team. I agree with the findings and with the plan. <Yesika Bee - 04/22/18 12:53>
[2018-04-22] MEDS ORDERED: oxyCODONE/Acetaminophen 10/325 Tablet PO PRN (11:40)
[2018-04-22 13:04] VITALS: BP 155/96; PULSE 54; TEMP 97.6; O2SAT 98
--- NOTE | 2018-04-22 16:27 | P.CON ---
History of Present Illness Service: Hand surgery Consult date: 04/22/18 Primary Care Provider: Samir Cox Chief Complaint: Swelling in finger after animal bite History of Present Illness: History obtained from chart and nursing as well as patient Patient is a 52-year-old male with no significant past medical history who presents with pain and swelling in the right second digit. On Saturday (3 days [employer]) he was bit by a pygmy rattlesnake in the area of the right second distal phalanx while camping. He had immediate pain and swelling to the area. He went to an outside hospital where he received a digital nerve block and a tetanus booster. They wanted to observe him overnight and he declined admission. He states that they did not want to give him any antibiotics or other treatment at that time. Since that time he has had continued swelling and pain. He punctured the area with a new, clean needle because he felt like it was increasing in pressure, and he had significant drainage after that. He took 4 doses of Keflex 250 mg that he acquired from a friend. He describes his current pain as 8/10, constant, burning and throbbing , and feels like he has significant pressure. In the ED he received 1 dose of IV clindamycin. Denies changes in vision, changes in hearing, chest pain, palpitations, shortness of breath, nausea, vomiting, change in bowel habits, dysuria. Patient reports that since his admission, last night, when IV antibiotics were started, he feels significantly better today. He reports unrestricted range of motion of his wrist without pain. He reports that the fullness in his right index finger tip significantly improved when the bulla was lysed in the emergency department. Except as noted in the HPI review of systems negative to presenting complaint PMFSH - History History Provided By: Patient - Medical / Surgical Hx Neg / Unobtainable Medical Problems Denied: Yes - Medical History Medical History: Medical History (Last Updated 04/21/18 @ 09:59 by Emiliano Stratton) High cholesterol Medication list reviewed - Surgical History Surgical History: Surgical History (Last Updated 04/21/18 @ 15:11 by Doc Malin MD, R1) H/O arthroscopic knee surgery H/O sinus surgery - Family History Family History: Family History (Last Updated 04/21/18 @ 15:12 by Doc Malin MD, R1) Sister Cancer of pancreas Sister Esophageal cancer Mother Breast cancer - Social History I have reviewed the patient's Social History: Yes - Tobacco History Second Hand Smoke Exposure: Yes Tobacco Use In Past 30 Days: Yes Smoking Status: Current every day smoker Tobacco Type: Cigarettes Packs Per Day: 1 Years Smoked: 31 - Alcohol History How Often Do You Have a Drink Containing Alcohol: 2 to 4 times a month - Substance Use History Substance History: No History of Abuse - Travel History Recent Travel in the [place] Within the Last 8 Weeks: No Recent Travel Out of the Country Within the Last 8 Weeks: No - Immunization History Tetanus Immunization: <5 Years Hx Influenza Vaccine This Season: No PMFSH - History History Provided By: Patient - Medical / Surgical Hx Neg / Unobtainable Medical Problems Denied: Yes - Medical History Medical History: Medical History (Last Updated 04/21/18 @ 09:59 by Emiliano Stratton) High cholesterol - Surgical History Surgical History: Surgical History (Last Updated 04/21/18 @ 15:11 by Doc Malin MD, R1) H/O arthroscopic knee surgery H/O sinus surgery - Family History Family History: Family History (Last Updated 04/21/18 @ 15:12 by Doc Malin MD, R1) Sister Cancer of pancreas Sister Esophageal cancer Mother Breast cancer - Tobacco History Second Hand Smoke Exposure: Yes Tobacco Use In Past 30 Days: Yes Smoking Status: Current every day smoker Tobacco Type: Cigarettes Packs Per Day: 1 Years Smoked: 31 - Alcohol History How Often Do You Have a Drink Containing Alcohol: 2 to 4 times a month - Substance Use History Substance History: No History of Abuse - Travel History Recent Travel in the [place] Within the Last 8 Weeks: No Recent Travel Out of the Country Within the Last 8 Weeks: No - Immunization History Tetanus Immunization: <5 Years Hx Influenza Vaccine This Season: No Medications and Allergies Active Medications: Active Medications Al Hydroxide/Mg Hydroxide (Milk Of Magnesia Liq) 30 ml PO Q12H PRN PRN Reason: Mild Constipation Clonidine HCl (Catapres) 0.1 mg PO Q6H PRN PRN Reason: SEE LABEL COMMENTS Clindamycin/Sodium Chloride (Cleocin 600 Mg/Ns Premix) 600 mg in 50 mls @ 100 mls/hr IV.SIG Q8H LAZARO Stop: 04/23/18 13:29 Ibuprofen (Motrin) 400 mg PO Q6HR PRN PRN Reason: PAIN SCALE 1 TO 2 Lisinopril (Prinivil) 10 mg PO DAILY [facility] Last Admin: 04/22/18 09:10 Dose: 10 mg Naloxone HCl (Narcan Inj) 0.4 mg IV.PUSH UNSCH PRN PRN Reason: SEE LABEL COMMENTS Nicotine (Habitrol 21 Mg Patch.24 Hr) 1 patch T-DERMAL DAILY [facility] Last Admin: 04/22/18 09:10 Dose: 1 patch Oxycodone/Acetaminophen (Percocet 5/325 Mg) 1 tab PO Q6H PRN PRN Reason: PAIN SCALE 3 TO 5 Oxycodone/Acetaminophen (Percocet 10/325 Mg) 1 tab PO Q6H PRN PRN Reason: PAIN SCALE 6 TO 10 Last Admin: 04/22/18 13:41 Dose: 1 tab Patch Removal (Remove Old Patch) 1 each T-DERMAL HS [facility] Last Admin: 04/21/18 21:02 Dose: 1 each Senna/Docusate Sodium (Katie-Colace) 1 tab PO BID [facility] Last Admin: 04/22/18 09:12 Dose: Not Given Silver Sulfadiazine (Silvadene 1% Cream (50 Gm)) 1 applicatio TOPICAL DAILY [facility] Allergies Allergy/AdvReac Type Severity Reaction Status Date / Time No Known Allergies Allergy Uncoded 08/03/16 04:32 Physical Exam Vital signs: Vital Signs 04/21/18 16:40 04/21/18 17:20 04/21/18 20:00 Temperature 98.4 F Pulse Rate 59 L Respiratory Rate 16 18 17 Blood Pressure 157/94 H Pulse Oximetry 98 04/22/18 00:00 04/22/18 01:48 04/22/18 02:23 Temperature 98 F Pulse Rate 64 Respiratory Rate 17 18 Blood Pressure 150/92 H Pulse Oximetry 96 96 04/22/18 07:52 04/22/18 12:00 04/22/18 16:03 Temperature 97.7 F 97.6 F Pulse Rate 53 L 54 L Respiratory Rate 16 16 Blood Pressure 141/93 H 155/96 H Pulse Oximetry 97 98 98 Intake & Output 04/21/18 04/22/18 04/22/18 18:59 06:59 18:59 Intake Total 1050 / 1050 580 / 580 50 / 50 Balance 1050 / 1050 580 / 580 50 / 50 Weight 92.986 kg 92.9 kg Intake: IV 1050 / 1050 100 / 100 50 / 50 Cleocin 600 mg/NS Premix 600 mg 50 / 50 100 / 100 50 / 50 In 50 ml @ 100 mls/hr IV.SIG Q8H LAZARO Rx#:[id number] NS Inj 1,000 ML @ Wide Open IV. 1000 / 1000 SIG BOLUS ONE Rx#:[id number] Oral 480 / 480 Other: # Voids 3 Narrative: No apparent anxiety moist mucous membranes PERRLA skin without rash respirations nonlabored moves all 4 extremities to command digits warm well perfused Right index finger Roughly 3 cm bulla, which was unroofed, over the volar pad No surrounding erythema No tenderness proximal to the PIP Mild to moderate tenderness over the middle phalanx, though patient is significantly tender over the bolus/wound Index fingertip with good color/cap refill Sensation intact light touch distally Active range of motion of index finger limited Assessment and Plan - Assessment (1) Open wound of index finger Code(s): S61.208A - Unspecified open wound of other finger without damage to nail, initial encounter Status: Acute (2) Cellulitis and abscess of hand Code(s): L03.119 - Cellulitis of unspecified part of limb; L02.519 - Cutaneous abscess of unspecified hand Status: Acute (3) Bite, snake, venomous Code(s): T63.004A - Toxic effect of unspecified snake venom, undetermined, initial encounter Status: Acute - Plan 52-year-old male who presents several days out from right index finger snakebite , now improved status post ED incision of bulla and IV antibiotics Patient much improved by report Patient may discharge per primary Would advise Silvadene twice daily to unroofed index finger bulla Agree with antibiotics Elevate right upper extremity Please call with questions
--- NOTE | 2018-04-22 16:28 | P.PNADD ---
Addendum to Inpatient Note Reason for Addendum: Additional Documentation Additional information: [place] P[place] checked by myself and Dr. Flores. Patient last had narcotic written for acute pain in 02/2017. Will write patient Percocet 5mg for 3 days for acute pain.
[2018-04-22] MEDS ORDERED: Clindamycin 600 mg/NS Premix 600 MG/50 ML PIGGYBACK IV.SIG SCH (21:00)
== END 2018-04-22 17:33 | disposition home or self-care (01) ==
LOC: NEPC 09:31 → NEDA 14:45 → N07 16:16
PROVIDERS: ADMIT Family Medicine; ATTEND Family Medicine